=== PATIENT | female | born 2000 | race Caucasian/White ===

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

== ENCOUNTER 2024-05-06 22:06 | Emergency (ER) | payer OTHER, SELFPAY ==
[2024-05-06 22:15] VITALS: BP 144/78; PULSE 92; RESP 16; TEMP 36.3; O2SAT 99
--- NOTE | 2024-05-07 00:12 | ED.FEMALEGU ---
HPI - Female Genitourinary General Chief complaint: Urogenital-Female Stated complaint: urinary symptoms Time Seen by Provider: 05/07/24 00:10 Source: patient Mode of arrival: ambulatory Limitations: no limitations History of Present Illness HPI Narrative: This is a 23-year-old female who presents to the ED for chief complaint of possible UTI. Patient reports that she had a home test that tests for leukocytes and nitrites and tonight it showed evidence of both. She has been having bilateral flank discomfort and difficulty with urination. Complains of nausea but no vomiting. Denies unilateral pain. Denies fevers, chills or significant abdominal pain. Related Data Allergies Allergy/AdvReac Type Severity Reaction Status Date / Time cefaclor Allergy Intermediate Hives / Verified 05/06/24 22:24 Red Face Review of Systems Review of Systems: All systems as dictated in HPI Exam Narrative: GENERAL: Well-appearing, well-nourished, and in no acute distress. HEAD: Normocephalic, atraumatic. EYES: PERRLA and EOMI. ENT: Nares clear, no rhinorrhea or epistaxis. Mucous membranes moist. Oropharynx without tonsillar hypertrophy exudate or other lesions. NECK: Supple. No adenopathy or masses. CHEST: No respiratory distress. Clear to auscultation. No wheezes rales or rhonchi HEART: Regular rate and rhythm. No murmur heard. Normal peripheral pulses. ABDOMEN: Soft, nontender, nondistended, normal active bowel sounds. Negative flank tenderness bilaterally MSK: Normal range of motion. No edema. SKIN: Warm, dry, no rash. NEURO: Alert and oriented x4. No focal deficits. PSYCH: Normal mood and affect. Course Vital Signs Vital signs: Vital Signs Temperature 97.4 F L 05/06/24 22:15 Pulse Rate 92 05/06/24 22:15 Respiratory Rate 16 05/06/24 22:15 Blood Pressure 144/78 H 05/06/24 22:15 Pulse Oximetry 99 05/06/24 22:15 Oxygen Delivery Room Air 05/06/24 22:15 Temperature 97.4 F L 05/06/24 22:15 Pulse Rate 88 05/07/24 01:46 Respiratory Rate 15 05/07/24 01:46 Blood Pressure 114/84 05/07/24 01:46 Pulse Oximetry 99 05/07/24 01:46 Oxygen Delivery Room Air 05/06/24 22:15 MDM - Female Genitourinary MDM Narrative Medical decision making narrative: This is a 23-year-old female who presents to the ED for chief complaint of difficulty with urination and bilateral flank pain with home UTI test positive. Vitals are normal. Exam is benign overall. No significant flank tenderness or abdominal tenderness. She is well-appearing on exam. Urinalysis does show 1+ leuks with 11-20 whites. Will send for culture. Will treat in the meantime with Macrobid as she has allergies to cephalosporins. Patient will be discharged in stable condition. Supportive measures discussed and return precautions given. Patient is understanding and agreeable with plan for discharge with PCP follow-up. Lab Data Labs: Lab Results 05/07/24 05/07/24 Range/Units 01:11 01:13 Urine Color Yellow (Yellow) Urine Appearance Clear (Clear) Urine pH 6.5 (5.0-9.0) Ur Specific [place] 1.017 (1.001-1.035) Urine Protein Negative (Negative) mg/dL Urine Glucose (UA) Negative (Negative) mg/dL Urine Ketones Trace H (Negative) mg/dL Ur Blood (Man) Negative (Negative) Urine Nitrate Negative (Negative) Urine Bilirubin Negative (Negative) Urine Urobilinogen 1.0 (<2.0) mg/dL Leukocyte Esterase Rfl 1+ H (Negative) AMBROSE/UL Urine RBC 0-2 (0-2) /hpf Urine WBC 11-20 H (0-3) /hpf Ur Squamous Epith Cells Few (Few) /hpf Urine Bacteria None seen /hpf Urine Casts 0-2 POC Urine HCG, Qual Negative (Negative) Discharge Plan Discharge Clinical Impression: Urinary tract infection Patient Disposition: Home, Self-Care Condition: Stable Instructions: Antibiotic Form Additional Instructions: Exam does show evidence of UTI today. Please take antibiotics as prescribed. Follow-up with PCP. If you have any new or worsening symptoms please return to the ER for further evaluation. Prescriptions: New nitrofurantoin monohyd/m-cryst [Macrobid] 100 mg capsule 100 mg PO Q12H 5 Days Qty: 10 0RF Rx Instructions: must administer with a meal/food No Action amoxicillin-pot clavulanate [Augmentin] 500-125 mg tablet 1 tablet PO Q12H Qty: 14 0RF Follow-up/Referrals: Collins,MD Dillan [Primary Care Provider] - Time of Disposition: 01:37
[2024-05-07 01:24] LABS: Add Urine Microscopic? YES; Appearance Urine Clear (Clear); Bacteria Urine None Seen /hpf; Bilirubin Urine Negative (Negative); Blood Urine Negative (Negative); Color Urine Yellow (Yellow); Glucose Urine UA Negative (Negative); Ketones Urine Trace mg/dL (Negative); Leukocyte Esterase Ur 1+ LEU/UL (Negative); Nitrate Urine Negative (Negative); Non Pathogenic Casts 0-2; Protein Urine Negative (Negative); RBC Urine 0-2 /hpf (0-2); Specific Grav Ur 1.017 (1.001-1.035); Squamous Epithelial Cell Urine Few /hpf (Few); pH Urine 6.5 (5.0-9.0)
[2024-05-07 01:34] LABS: BEDSIDEPREGUCG Negative (Negative)
[2024-05-07] MEDS: NITROFURANTOIN MONOHYD MACROCR 100 MG CAP PO (01:44)
[2024-05-07 01:46] VITALS: BP 114/84; PULSE 88; RESP 15; O2SAT 99
== END 2024-05-07 01:46 | disposition home or self-care (01) ==
PROVIDERS: Emergency Provider Physician Assistant; PCP Pediatrics
DX: N39.0 Urinary tract infection, site not specified (principal)
CPT/HCPCS: 81001; 81025; 87086; 99283; A9270

== ENCOUNTER 2024-07-13 17:30 | Emergency (ER) | payer OTHER, SELFPAY ==
[2024-07-13 17:38] VITALS: BP 108/66; PULSE 105; RESP 16; TEMP 36.3; O2SAT 100
[2024-07-13 18:16] LABS: EDUAAPPEAR Clear; EDUABILI Negative (Negative); EDUABLOOD Negative (Negative); EDUACOLOR1 Yellow; EDUAGLUCOSE Negative (Negative); EDUAKETONE Negative (Negative); EDUALEUKO 1+ (Negative); EDUANITRATE Negative (Negative); EDUAPROTEIN Negative (Negative); EDUASPGRAVITY 1.025; EDUAUROBILI 0.2
--- NOTE | 2024-07-13 18:18 | ED_ITS ---
HPI - Female Genitourinary General Chief complaint: Urogenital-Female Stated complaint: UTI symptoms Time Seen by Provider: 07/13/24 18:18 Source: patient Mode of arrival: ambulatory Limitations: no limitations History of Present Illness HPI Narrative: 24-year-old female presents with complaint of urinary frequency, urgency, dysuria with low back aching for 5 days. Afebrile. Denies nausea vomiting. No abdominal pain. Reports history of similar symptoms 2 months ago when she had urinary tract infection. All systems reviewed and negative except as noted above. Related Data Allergies Allergy/AdvReac Type Severity Reaction Status Date / Time cefaclor Allergy Intermediate Hives / Verified 07/13/24 17:52 Red Face Review of Systems Review of Systems: CONSTITUTIONAL: Denies fever, chills, or sweats. EYES: Denies visual changes, redness, or discharge. ENT: Denies rhinorrhea, congestion, sore throat, or otalgia. CARDIOVASCULAR: Denies chest pain, palpitations, or edema. RESPIRATORY: Denies cough or dyspnea. GASTROINTESTINAL: Denies abdominal pain, nausea, vomiting, or diarrhea. GENITOURINARY: Reports dysuria , frequency, urgency. Denies hematuria. SKIN: Denies rash or itching. MUSCULOSKELETAL: Denies back pain, joint pain, or myalgia. NEUROLOGIC: Denies headache, numbness, or weakness. PSYCHIATRIC: Denies anxiety or depression. All other systems reviewed are negative, except as documented in HPI. PMFSH Comments At time of signature, agree with nursing past medical, surgical, social and family history. There is no relevant family history pertinent to the presenting complaint. Exam Narrative: GENERAL: This is a well-nourished, well-developed patient, in no apparent distress. HEAD: normocephalic, atraumatic. EYES: PERRL. Sclera clear/white. Vision is grossly intact. EARS: External ears normal NOSE: External nose normal NECK: Neck supple, non-tender without lymphadenopathy, masses or thyromegaly. CARDIOVASCULAR: Regular rate and rhythm without murmurs, gallops, or rubs. RESPIRATORY: Clear to auscultation. Breath sounds equal bilaterally. No wheezes, rales, or rhonchi. SKIN: warm, Dry, intact with no suspicious lesions or rash, good texture and turgor. NEURO: awake, alert, and oriented to person, place and time. There were no obvious focal neurologic abnormalities. EXTREMITIES: No joint tenderness, effusion, or edema noted. Course Course Level of Care: Express Care Visit Vital Signs Vital signs: Vital Signs Temperature 36.3 C L 07/13/24 17:38 Pulse Rate 105 H 07/13/24 17:38 Respiratory Rate 16 07/13/24 17:38 Blood Pressure 108/66 07/13/24 17:38 Pulse Oximetry 100 07/13/24 17:38 Oxygen Delivery Room Air 07/13/24 17:38 Temperature 36.3 C L 07/13/24 17:38 Pulse Rate 105 H 07/13/24 17:38 Respiratory Rate 16 07/13/24 17:38 Blood Pressure 108/66 07/13/24 17:38 Pulse Oximetry 100 07/13/24 17:38 Oxygen Delivery Room Air 07/13/24 17:38 reviewed MDM - Female Genitourinary MDM Narrative Medical decision making narrative: urinalysis 1+ leukocytes. Urine culture ordered. Will treat patient with antibiotic due to urinary symptoms. Recommend follow-up with primary care physician. Reviewed urine culture results from ER visit in May. Discussed results with patient. Patient is aware of diagnosis, understands and agrees to treatment plan. Anticipatory guidance given. Patient agrees to follow-up as directed and is aware of reasons to seek care at the emergency department. Portions of this record may have been created with voice recognition software Lab Data Labs: Lab Results 07/13/24 Range/Units 17:43 POC Urine Color Yellow POC Urine Clarity Clear POC Urine pH 6.0 POC Ur Specif [place] 1.025 POC Urine Protein Negative (Negative) POC Ur Glucose (UA) Negative (Negative) POC Urine Ketones Negative (Negative) POC Urine Blood Negative (Negative) POC Urine Nitrite Negative (Negative) POC Urine Bilirubin Negative (Negative) POC Urine Urobilinogen 0.2 POC U Leukocyte Esteras 1+ (Negative) Discharge Plan Discharge Clinical Impression: Urinary tract infection Patient Disposition: Home, Self-Care Condition: Stable Instructions: Antibiotic Form, Urinary Tract Infection in Women (ED) Additional Instructions: take antibiotic as prescribed until gone. Drink at least 64 oz water a day. follow-up with primary care physician if symptoms are not improving. Patient Language: Yi Prescriptions: New sulfamethoxazole-trimethoprim [Bactrim DS] 800-160 mg tablet 1 tablet PO Q12H 3 Days Qty: 6 0RF Follow-up/Referrals: PHYSICIAN,CASHIER SUPERVISOR [Primary Care Provider] - Vince Alegria MD [Physician] - ( Establish care with a primary care physician) Time of Disposition: 18:28
== END 2024-07-13 18:40 | disposition home or self-care (01) ==
PROVIDERS: Emergency Provider Nurse Practitioner Family
DX: N39.0 Urinary tract infection, site not specified (principal)
CPT/HCPCS: 81003; 87086; 99213; G0463